=== PATIENT | female | born 1940 | race Caucasian/White ===

== ENCOUNTER 2019-07-21 17:10 | Inpatient (IN) | payer OTHER ==
[~2019-07-21] VITALS: Ht 160 cm; Wt 72.6 kg
--- NOTE | 2019-07-21 00:40 | NUR ---
ROUNDS DONE. ASSISTED PATIENT TO COMMODE. NO APPARENT DISTRESS NOTED. DENIES PAIN. BED IN LOW POSITION. CALL LIGHT WITHIN REACH. WILL CONTINUE TO MONITOR. Addendum: 07/22/19 at 0157 by Michael Patten RN DISREGARD NOTE. WRONG TIME.
[2019-07-21 17:15] VITALS: BP 140/80
--- NOTE | 2019-07-21 17:30 | NUR ---
78/F BIBA FROM HOME, C/O SUDDEN ONSET PALPITATIONS, APPROX 1 HR AGO WHILE GETTING UP FROM SITTING. PT AWAKE AND ALERT, SKIN NORMAL COLOR WARM AND DRY, SPO2 98% ON RA, RR 16 EVEN AND UNLABORED. LUNG SOUNDS CLEAR BL. HR 125-134, A.FIB WITH RVR ON MONITOR. HX A.FIB, CHF, DM RX SPIRINOLACTONE, ASPIRIN, DILTIAZEM, LOSARTAN, LATANOPROST EYE DROPS
[2019-07-21] MEDS ORDERED: DILTIAZEM 25 MG/5 ML VIAL IVP ONE ×2 (18:45→20:15)
[2019-07-21 19:11] LABS: BASOPHILS # (AUTO) 0.1 K/uL (0.00-0.22); BASOPHILS % (AUTO) 0.9 % (0.0-2.0); EOSINOPHILS # (AUTO) 0.2 K/uL (0-0.4); HEMATOCRIT 39.6 % (36-48); HEMOGLOBIN 12.8 g/dL (12.0-16.0); LYMPHOCYTES # (AUTO) 1.8 K/uL (2.5-16.5); LYMPHOCYTES % (AUTO) 25.2 % (20.5-51.1); MEAN CORPUSCULAR HEMOGLOBIN 29 pg (27-31); MEAN CORPUSCULAR HGB CONC 32 g/dL (33-37); MEAN CORPUSCULAR VOLUME 90.5 fL (80-94); MONOCYTES # (AUTO) 0.8 K/uL (0.8-1.0); MONOCYTES % (AUTO) 11.6 % (1.7-9.3); NEUTROPHILS # (AUTO) 4.3 K/uL (1.8-7.7); NEUTROPHILS % (AUTO) 59.3 % (42.2-75.2); PLATELET COUNT (AUTO) 300 K/uL (140-450); RED BLOOD CELL COUNT(AUTO) 4.38 MIL/uL (4.20-5.40); RED CELL DISTRIBUTION WIDTH 15.8 % (11.6-13.7); WHITE BLOOD COUNT (AUTO) 7.2 K/uL (4.8-10.8)
[2019-07-21 19:21] LABS: ANION GAP 14.9 (8-16); CARBON DIOXIDE 27.3 mmol/L (21-32); CHLORIDE 104 mmol/L (98-107); CREATININE 0.5 mg/dL (0.6-1.3); GLUCOSE 116 mg/dL (74-106); POTASSIUM 4.2 mmol/L (3.5-5.1); SODIUM SERUM 142 mmol/L (136-145); UREA NITROGEN, BLOOD 21 mg/dL (7-18)
[2019-07-21 19:26] LABS: PROTHROMBIN TIME 9.9 secs (10.8-13.4)
[2019-07-21 19:27] LABS: ALBUMIN 3.4 g/dL (3.4-5.0); ASPARTATE AMINOTRANSFERASE 28 U/L (15-37); TOTAL BILIRUBIN 0.2 mg/dL (0.0-1.0)
--- NOTE | 2019-07-21 19:37 | NUR ---
HR 80 AFTER CARDIZEM IV. VS NOTED.
[2019-07-21] MEDS ORDERED: NACL 0.9% 500 ML IV ONE (20:10)
--- NOTE | 2019-07-21 20:22 | NUR ---
HR 80-90S AFIB; PT DENIES CP/SOB/PALPITATIONS. MADE AWARE
--- NOTE | 2019-07-21 20:35 | NUR ---
PT HR STABLIZED IN THE 80S, PER DR. REYES HOLD SECOND DOSE OF CARDIZEM.
[2019-07-21] MEDS ORDERED: THYR60TA7 PO (20:48)
[2019-07-21] MEDS ORDERED: FLUO0.052 TP (20:48)
[2019-07-21] MEDS ORDERED: DILT-135 PO (20:48)
[2019-07-21] MEDS ORDERED: LOSA50TA66 PO (20:48)
[2019-07-21] MEDS ORDERED: SPIR25TA PO (20:48)
[2019-07-21] MEDS ORDERED: [UNRECOGNIZED DRUG - MIXTURE] TP (20:48)
[2019-07-21] MEDS ORDERED: LATA7.5D LEFT EYE (20:48)
[2019-07-21] MEDS ORDERED: ASPI-1884 PO (20:48)
--- NOTE | 2019-07-21 20:55 | NUR ---
ADMITTED 18 YEAR OLD FEMALE FROM ER. A/O X4. FRISIAN SPEAKING. ABLE TO MAKE NEEDS KNOWN. WITH PERIPHERAL IV 20G ON LEFT AC SALINE LOCKED. INTRODUCED SELF. ORIENTED TO HOSPITAL ROUTINE, CALL LIGHT AND ENVIRONMENT. DENIES PAIN AND DISCOMFORT. ABLE TO MAKE NEEDS KNOWN. AMBULATES TO BATHROOM. FALL PRECAUTIONS OBSERVED. BED ON LOW POSITION AND CALL LIGHT WITHIN REACH. WILL CONTINUE TO MONITOR.
--- NOTE | 2019-07-21 20:55 | NUR ---
Patient will be admitted to care of Dr. Romero. Admited to [facility]. Will go to room 107B. Belongings list completed. Report to Colby Casas RN. Transfer of care at this time.
[2019-07-21] MEDS ORDERED: HYDROcodone/APAP 5/325 MG 1 TAB TAB PO PRN (21:15)
[2019-07-21] MEDS ORDERED: DOCUSATE SODIUM 100 MG GELCAP PO PRN (21:15)
[2019-07-21] MEDS ORDERED: LORazepam 2 MG/ML VIAL IM/IVP PRN (21:15)
[2019-07-21] MEDS ORDERED: MORPHINE SULFATE 2 MG/ML SYR IVP PRN (21:15)
[2019-07-21] MEDS ORDERED: ACETAMINOPHEN 325 MG TAB PO PRN (21:15)
[2019-07-21] MEDS ORDERED: ONDANSETRON 4 MG/2 ML VIAL IM/IVP PRN (21:15)
[2019-07-21 22:16] LABS: MAGNESIUM 2.1 mg/dL (1.8-2.4); PHOSPHORUS 3.4 mg/dL (2.5-4.9); THYROID STIMULATING HORMONE 0.28 uIU/mL (0.34-3.74)
[2019-07-21] MEDS ORDERED: FUROSEMIDE 20 MG/2 ML VIAL IVP ONE (22:30)
[2019-07-21] MEDS: NACL 0.9% 1,000 ML IV SCH (22:33)
[2019-07-21] MEDS ORDERED: RIVAROXABAN 10 MG TAB PO SCH (22:40)
--- NOTE | 2019-07-21 22:45 | NUR ---
ROUNDS DONE. ASSISTED PATIENT TO THE BATHROOM. NO DISTRESS NOTED. DENIES PAIN. BED ON LOW POSITION. CALL LIGHT WITHIN REACH. WILL CONTINUE TO MONITOR.
[2019-07-21] MEDS ORDERED: FLUOCINONIDE TP SCH (23:10)
[2019-07-22] VITALS (7 sets, daily range): BP systolic 100–136; BP diastolic 58–77
[2019-07-22] MEDS ORDERED: RIVAROXABAN 10 MG TAB PO SCH (00:30)
--- NOTE | 2019-07-22 00:40 | NUR ---
ROUNDS DONE. ASSISTED PATIENT TO COMMODE. NO APPARENT DISTRESS NOTED. DENIES PAIN. BED IN LOW POSITION. CALL LIGHT WITHIN REACH. WILL CONTINUE TO MONITOR.
--- NOTE | 2019-07-22 02:35 | NUR ---
ASSISTED PATIENT TO COMMODE. REPOSITIONED FOR COMFORT. BED ALARM ON. CALL LIGHT WITHIN REACH. BED ON LOW POSITION. WILL CONTINUE TO MONITOR.
--- NOTE | 2019-07-22 03:07 | NUR ---
CHECKS DONE. ASSISTED PATIENT TO COMMODE. REPOSITIONED FOR COMFORT. BED IN LOW POSITION. CALL LIGHT WITHIN REACH. WILL CONTINUE TO MONITOR.
--- NOTE | 2019-07-22 05:05 | NUR ---
ROUNDS DONE. PATIENT ASLEEP IN BED. VISIBLE CHEST RISE AND FALL NOTED. BED ALARM ON. BED ON LOW POSITION. CALL LIGHT WITHIN REACH. WILL CONTINUE TO MONITOR.
[2019-07-22] MEDS: NACL 0.9% 1,000 ML IV SCH ×2 (06:10→21:24)
--- NOTE | 2019-07-22 06:12 | NUR ---
ASSISTED PATIENT TO COMMODE. NO DISTRESS NOTED. BED ON LOW POSITION. BED ALARM ON. CALL LIGHT WITHIN REACH. WILL ENDORSE TO AM SHIFT NURSE.
[2019-07-22 06:58] LABS: BASOPHILS # (AUTO) 0.1 K/uL (0.00-0.22); BASOPHILS % (AUTO) 1.1 % (0.0-2.0); EOSINOPHILS # (AUTO) 0.3 K/uL (0-0.4); EOSINOPHILS % (AUTO) 2.8 % (0.0-4.0); HEMOGLOBIN 12.4 g/dL (12.0-16.0); LYMPHOCYTES # (AUTO) 2.5 K/uL (2.5-16.5); LYMPHOCYTES % (AUTO) 27.2 % (20.5-51.1); MEAN CORPUSCULAR HEMOGLOBIN 29 pg (27-31); MEAN CORPUSCULAR HGB CONC 33 g/dL (33-37); MONOCYTES # (AUTO) 0.9 K/uL (0.8-1.0); NEUTROPHILS # (AUTO) 5.3 K/uL (1.8-7.7); NEUTROPHILS % (AUTO) 58.9 % (42.2-75.2); PLATELET COUNT (AUTO) 294 K/uL (140-450); RED BLOOD CELL COUNT(AUTO) 4.23 MIL/uL (4.20-5.40); RED CELL DISTRIBUTION WIDTH 15.7 % (11.6-13.7); WHITE BLOOD COUNT (AUTO) 9.1 K/uL (4.8-10.8)
[2019-07-22 07:08] LABS: ANION GAP 15.1 (8-16); CARBON DIOXIDE 25.7 mmol/L (21-32); CHLORIDE 106 mmol/L (98-107); CREATININE 0.5 mg/dL (0.6-1.3); GLUCOSE 91 mg/dL (74-106); POTASSIUM 3.8 mmol/L (3.5-5.1); SODIUM SERUM 143 mmol/L (136-145); UREA NITROGEN, BLOOD 15 mg/dL (7-18)
--- NOTE | 2019-07-22 07:10 | NUR ---
RECEIVED PT REPORT FROM SENIOR SALES OPERATIONS MANAGER RN. PT IS IN BED, AAOX4. NO S/S OF ACUTE DISTRESS ON ROOM AIR. DENIES PAIN. LUNG SOUNDS CLEAR. BILATERAL LOWER EXTREMITIES EDEMA NOTED. PULSE PALPABLE 2+, SR ON TELEMONITOR. IV TO LEFT AC, 20G, SITE IS PINK, NOT ABLE TO FLUSH. WILL DC LATER. BEDSIDE COMMODE AVAILABLE. CALL LIGHT WITHIN REACH, BED IN LOCKED IN LOWEST POSITION. WILL CONTINUE TO MONITOR.
[2019-07-22] MEDS ORDERED: THYROID 15 MG PO SCH (07:30)
[2019-07-22] MEDS ORDERED: THYROID ARMOUR PO SCH (07:30)
--- NOTE | 2019-07-22 08:00 | NUR ---
PT SAID SHE ALREADY HAD HER THYROID MED 90MG THIS MORNING AROUND 3AM. PT REFUSED THE DOSE AT 0730.
[2019-07-22] MEDS: ASPIRIN 81 MG TAB.CHEW PO SCH (08:18)
[2019-07-22] MEDS: SPIRONOLACTONE 25 MG TAB PO SCH (08:19)
--- NOTE | 2019-07-22 08:25 | NUR ---
PATIENT HAS BEEN SCREENED AND CATEGORIZED MODERATE NUTRITION RISK. PATIENT WILL BE SEEN WITHIN 3-5 DAYS OF ADMISSION. 07/24/19 07/26/[address]
[2019-07-22] MEDS ORDERED: LOSARTAN 50 MG TAB PO SCH (09:00)
[2019-07-22] MEDS ORDERED: POLYVINYL ALCOHOL 1.4% OP 15 ML SOL OP SCH (09:00)
[2019-07-22] MEDS ORDERED: THYROID PORK 90 MG PO SCH (09:00)
[2019-07-22] MEDS ORDERED: prednisoLONE 1% OP 5 ML BTL OP SCH (09:00)
[2019-07-22] MEDS ORDERED: FUROSEMIDE 20 MG/2 ML VIAL IVP SCH (09:00)
--- NOTE | 2019-07-22 09:00 | NUR ---
PT SAID SHE HAS SELF ADMINISTERED HER EYES DROPS THIS MORNING. ASKED PT TO SEND THE EYE DROPS TO PHARM FOR VERIFYING AND LABELING. PT AGREED. Addendum: 07/22/19 at 1124 by Norm Davis RN SYSTANE AND PREDNISOLONE.
--- NOTE | 2019-07-22 09:30 | NUR ---
IV STARTED ON RIGHT FA, 22G, DC IV CATH THAT WAS ON LEFT AC, RESUMED IVF.
[2019-07-22] MEDS: DILTIAZEM 120 MG CAPER PO SCH (09:49)
--- NOTE | 2019-07-22 09:50 | NUR ---
AMBULATED WITH PHYSICAL THERAPY.
--- NOTE | 2019-07-22 10:52 | NUR ---
D/C PLANNING 78 YRS OLD FEMALE ADMITTED FROM HOME WITH A DX OF A-FIB WITH RVR. PT HAS A HX OF A-FIB, CHF , MACULAR DEGENERATION AND PROLAPSED BLADDER. PT IS INDEPENDENT AT HOME, AMBULATE WITH FWW AND PERFORM ADL'S INDEPENDENTLY. RECEIVED 15MG DILTIAZEM IVP, IVF NS , LASIX AND STARTED ON XERALTO 15 MG PO . CARDIO CONSULT ORDERED DC PLAN PER COMMUNICATIONS MAINTAINER, CM TO F/U
[2019-07-22 11:21] LABS: APPEARANCE,URINE CLEAR (CLEAR); BILIRUBIN,URINE NEGATIVE (NEGATIVE); BLOOD, URINE NEGATIVE (NEGATIVE); COLOR,URINE YELLOW (YELLOW); LEUKOCYTE ESTERASE ,URINE 1+ (NEGATIVE); NITRITE, URINE POSITIVE (NEGATIVE); UGLUCOSE NEGATIVE (NEGATIVE)
[2019-07-22 11:30] LABS: RBC,URINE 0-5 /HPF (0-5)
[2019-07-22] MEDS: SYSTANE EYE DROP OP SCH ×3 (13:32→20:50)
[2019-07-22] MEDS: PREDNISOLONE ACETATE 1% OP SCH ×2 (13:33→17:06)
[2019-07-22] MEDS: [UNRECOGNIZED DRUG - OTHER] OP SCH ×2 (13:33→17:06)
--- NOTE | 2019-07-22 14:10 | NUR ---
PT IS HAVING ECHO TEST, NO S/S OF DISTRESS
[2019-07-22] MEDS ORDERED: PATIENTS OWN TABLET PO SCH (15:00)
[2019-07-22] MEDS ORDERED: RIVAROXABAN 15 MG TAB PO SCH (17:00)
--- NOTE | 2019-07-22 19:30 | NUR ---
RECEIVED BEDSIDE REPORT FROM AM SHIFT RN DAMION, FOR PT'S CONTINUITY OF CARE. PT IS LYING DOWN AAOX4, IS ON TREATMENT PLANT MECHANIC, ON ROOM AIR, HAS RIGHT FA 22G WITH NS AT 40ML/HR, DENIES ANY PAIN AT THIS TIME. EXPLAINED TO PT THE NUMERICAL CONTROL DRILL PRESS OPERATOR ROUTINE, VERBALIZED UNDERSTANDING. SAFETY MEASURES IN PLACE, FALL PRECAUTION IN PLACE, CALL LIGHT IS WITHIN REACH. WILL MONITOR PT THROUGHOUT SHIFT.
--- NOTE | 2019-07-22 20:50 | NUR ---
ADMINISTERED SCHEDULED OPTH RAJEEV'N MEDICATION ORDERED. PT REFUSED SCHEDULED BP MEDICATION. PER PT, CONCERNED MIGHT HAVE REACTION WITH RECENT GLAUCOMA SX. ASSISTED PT TO BSC AND PERFORM ORAL HYGIENE, PT TOLERATED ACTIVITIES WELL. WILL CONTINUE TO MONITOR PT.
[2019-07-22] MEDS ORDERED: LATANOPROST LEFT EYE SCH (21:00)
[2019-07-22] MEDS ORDERED: LATANOPROST 0.005% OP 2.5 ML BTL OP SCH (21:00)
[2019-07-22] MEDS: SOTALOL 80 MG TAB PO SCH (21:00)
[2019-07-23] VITALS: BP 132/55
--- NOTE | 2019-07-23 | NUR ---
VS CHECKED AND CHARTED. PT DENIES ANY PAIN AT THIS TIME. PT HR FLUCTUATING SINUS KATELYNN, PT ASSESSED, DENIES ANY DISTRESS, HR WENT BACK TO SR. WILL CONTINUE TO MONITOR PT.
--- NOTE | 2019-07-23 02:00 | NUR ---
MADE ROUNDS. PT LYING DOWN ASLEEP WITH NO SIGNS OF DISTRESS. WILL CONTINUE TO MONITOR PT.
[2019-07-23] MEDS ORDERED: THYROID 15 MG PO SCH (03:00)
[2019-07-23] MEDS ORDERED: THYROID ARMOUR PO SCH (03:00)
--- NOTE | 2019-07-23 03:41 | NUR ---
ADMINISTERED SCHEDULED PO MEDICATION ORDERED. PT TOLERATED IT WELL. DENIES ANY PAIN OR DISCOMFORT. VS CHECKED AND CHARTED. WILL CONTINUE TO MONITOR PT.
[2019-07-23 04:00] VITALS: BP 135/53
--- NOTE | 2019-07-23 06:22 | NUR ---
ASSISTED PT TO BSC. PT TOLERATED ACTIVITY WELL. PT'S GAIT STILL WEAK DT EDEMA. PT DENIES PAIN OR ANY DISCOMFORT. WILL ENDORSE TO AM SHIFT RN FOR PT'S CONTINUITY OF CARE.
[2019-07-23 06:50] LABS: ANION GAP 13.1 (8-16); BASOPHILS # (AUTO) 0.1 K/uL (0.00-0.22); BASOPHILS % (AUTO) 0.8 % (0.0-2.0); CARBON DIOXIDE 27.8 mmol/L (21-32); CHLORIDE 107 mmol/L (98-107); CREATININE 0.5 mg/dL (0.6-1.3); EOSINOPHILS # (AUTO) 0.3 K/uL (0-0.4); EOSINOPHILS % (AUTO) 4.5 % (0.0-4.0); GLUCOSE 90 mg/dL (74-106); HEMATOCRIT 35.3 % (36-48); HEMOGLOBIN 11.4 g/dL (12.0-16.0); LYMPHOCYTES # (AUTO) 2.3 K/uL (2.5-16.5); LYMPHOCYTES % (AUTO) 33.3 % (20.5-51.1); MEAN CORPUSCULAR HEMOGLOBIN 29 pg (27-31); MEAN CORPUSCULAR HGB CONC 32 g/dL (33-37); MEAN CORPUSCULAR VOLUME 90.6 fL (80-94); MONOCYTES # (AUTO) 0.6 K/uL (0.8-1.0); MONOCYTES % (AUTO) 9.2 % (1.7-9.3); NEUTROPHILS # (AUTO) 3.7 K/uL (1.8-7.7); NEUTROPHILS % (AUTO) 52.2 % (42.2-75.2); PLATELET COUNT (AUTO) 265 K/uL (140-450); POTASSIUM 3.9 mmol/L (3.5-5.1); RED CELL DISTRIBUTION WIDTH 15.4 % (11.6-13.7); SODIUM SERUM 144 mmol/L (136-145); UREA NITROGEN, BLOOD 14 mg/dL (7-18)
[2019-07-23 06:56] LABS: MAGNESIUM 1.9 mg/dL (1.8-2.4); PHOSPHORUS 3.4 mg/dL (2.5-4.9)
[2019-07-23 07:07] LABS: T4 (THYROXINE) 5.7 ug/dL (4.5-12.0)
--- NOTE | 2019-07-23 07:37 | NUR ---
RECEIVED HAND OFF REPORT FROM PM RN PT AWAKE IN BED PT APPEARS STABLE AND IN NO APPARENT DISTRESS. ALL SAFETY MEASURES ARE IN PLACE WILL CONTINUE TO MONITOR
[2019-07-23 08:00] VITALS: BP 137/69
[2019-07-23] MEDS ORDERED: ASPI-1206 PO (08:02)
[2019-07-23] MEDS ORDERED: THYR60TA7 PO (08:02)
[2019-07-23] MEDS: SOTALOL 80 MG TAB PO SCH (08:23)
[2019-07-23] MEDS: ASPIRIN 81 MG TAB.CHEW PO SCH (08:23)
[2019-07-23] MEDS: DILTIAZEM 120 MG CAPER PO SCH (08:24)
[2019-07-23] MEDS: SPIRONOLACTONE 25 MG TAB PO SCH (08:24)
[2019-07-23] MEDS: PREDNISOLONE ACETATE 1% OP SCH (08:24)
[2019-07-23] MEDS: [UNRECOGNIZED DRUG - OTHER] OP SCH (08:24)
[2019-07-23] MEDS: SYSTANE EYE DROP OP SCH (08:25)
--- NOTE | 2019-07-23 08:38 | NUR ---
UPDATED PT AND INFORMED PT THAT SHE HAS BEEN DISCHARGED PT STATED SHE WILL ARRANGE FOR A RIDE FROM HER DAUGHTER. WILL START PREPARING DISCHARGE PAPERWORK
[2019-07-23] MEDS ORDERED: [UNRECOGNIZED DRUG - OTHER] OP SCH (09:00)
[2019-07-23] MEDS ORDERED: SYSTANE EYE DROPS OP SCH (09:00)
[2019-07-23] MEDS ORDERED: PREDNISOLONE ACETATE 1% OP SCH (09:00)
[2019-07-23 10:35] VITALS: BP 137/78
--- NOTE | 2019-07-23 11:31 | NUR ---
REVIEWED DISCHARGE PAPERWORK WITH PT. ANSWERED ALL QUESTIONED REVIEWED CHANGES OF PT MEDICATIONS AND INFORMED PT HER MEDICATIONS ARE AVAILABLE FOR MICA MINER BLASTING AT [facility]. REMOVED IV IV TIP INTACT. REMOVED ID BAND. PATIENT LEFT WITH ALL HER PERSONAL BELONGINGS. PT LEFT WITH ALL QUESTIONS ANSWERED. GAVE PATIENT BACK HER HOME MEDICATIONS. PT STATED SHE WILL FOLLOW UP WITH HER PRIMARY DOCTOR WELL HER BUSINESS OFFICE DIRECTOR AND BONE DRIER. PT LEFT UNIT IN WHEELCHAIR
== END 2019-07-23 11:20 | disposition home or self-care (01) | DRG 309 ==
LOC: MED 17:10 → MTU 20:24
PROVIDERS: ADMIT General Practice; ATTEND General Practice
DX: I48.91 Unspecified atrial fibrillation (principal); D68.59 Other primary thrombophilia; I50.9 Heart failure, unspecified; H40.9 Unspecified glaucoma; E89.0 Postprocedural hypothyroidism; Z60.2 Problems related to living alone; E78.5 Hyperlipidemia, unspecified; R73.03 Prediabetes; H35.30 Unspecified macular degeneration; N81.10 Cystocele, unspecified; Z88.8 Allergy status to other drugs, medicaments and biological substances; Z81.1 Family history of alcohol abuse and dependence; Z82.49 Family history of ischemic heart disease and other diseases of the circulatory system
CPT/HCPCS: 36415; 71045; 80048; 80053; 81001; 83036; 83690; 83735; 83880; 84100; 84134; 84436; 84443; 84484; 85025; 85610; 85730; 87081; 87086; 93005; 96374; 97116; 97161-GP; 97530; 99285; J1940; J3490; J7030; Q0092